=== PATIENT | male | born 1995 | race Caucasian/White ===

== ENCOUNTER 2019-01-30 19:24 | Emergency (ER) | payer SELFPAY ==
[~2019-01-30] VITALS: Ht 170.2 cm; Wt 56.0 kg
[2019-01-30 19:30] VITALS: BP 119/89
== END 2019-01-30 21:04 | disposition home or self-care (01) ==
LOC: ER 19:24
DX: F11.10 Opioid abuse, uncomplicated (principal)
CPT/HCPCS: 99283